=== PATIENT | male | born 1975 | race Caucasian/White ===

== ENCOUNTER 2019-06-17 09:23 | Emergency (ER) | payer OTHER ==
[~2019-06-17] VITALS: Ht 188 cm; Wt 124.7 kg
[2019-06-17 09:23] VITALS: BP_SYST 143
[2019-06-17 10:20] VITALS: BP_SYST 143
== END 2019-06-17 10:38 | disposition home or self-care (01) ==
LOC: SED 09:23
DX: K40.90 Unilateral inguinal hernia, without obstruction or gangrene, not specified as recurrent (principal); K42.9 Umbilical hernia without obstruction or gangrene
CPT/HCPCS: 99283

== ENCOUNTER 2019-06-20 11:23 | Emergency (ER) | payer OTHER ==
[~2019-06-20] VITALS: Ht 188 cm; Wt 79.4 kg
[2019-06-20 11:31] VITALS: BP_SYST 154
[2019-06-20 12:26] LABS: BASOPHILS # (AUTO) 0.1 K/uL (0.0-0.2); BASOPHILS % (AUTO) 0.7 % (0.0-2.0); EOSINOPHILS # (AUTO) 0.1 K/uL (0.0-0.4); EOSINOPHILS % (AUTO) 1.7 % (0.0-4.0); HEMATOCRIT 46.4 % (36-54); HEMOGLOBIN 15.5 g/dL (14.0-18.0); LYMPHOCYTES # (AUTO) 2.7 K/uL (1.0-5.5); MEAN CORPUSCULAR HEMOGLOBIN 29 pg (27-31); MEAN CORPUSCULAR HGB CONC 34 % (32-36); MEAN CORPUSCULAR VOLUME 86 fL (79.0-98.0); MONOCYTES # (AUTO) 0.5 K/uL (0.0-1.0); MONOCYTES % (AUTO) 5.7 % (1.7-9.3); NEUTROPHILS # (AUTO) 4.9 K/uL (1.8-7.7); NEUTROPHILS % (AUTO) 58.9 % (40.0-70.0); PLATELET COUNT (AUTO) 290 K/uL (130-430); RED BLOOD CELL COUNT(AUTO) 5.41 MIL/uL (4.2-6.2); RED CELL DISTRIBUTION WIDTH 14.5 % (9.0-15.0); WHITE BLOOD COUNT (AUTO) 8.3 K/uL (4.8-10.8)
[2019-06-20 12:34] LABS: CREATININE 0.87 mg/dL (0.55-1.30); POTASSIUM 4.4 mmol/L (3.5-5.1)
[2019-06-20 12:40] LABS: ALBUMIN 3.8 g/dL (3.4-4.8); TOTAL BILIRUBIN 0.5 mg/dL (0.0-1.0)
[2019-06-20 13:53] VITALS: BP_SYST 142
== END 2019-06-20 13:55 | disposition home or self-care (01) ==
LOC: SED 11:23
DX: S39.011A Strain of muscle, fascia and tendon of abdomen, initial encounter (principal); K80.20 Calculus of gallbladder without cholecystitis without obstruction; K59.00 Constipation, unspecified; X58.XXXA Exposure to other specified factors, initial encounter; Y93.89 Activity, other specified; Y92.89 Other specified places as the place of occurrence of the external cause; Y99.8 Other external cause status
CPT/HCPCS: 36415; 80053; 83690-TC; 85025; 99284

== ENCOUNTER 2022-06-20 10:10 | Emergency (ER) | payer OTHER ==
[~2022-06-20] VITALS: Ht 188 cm; Wt 127.0 kg
[2022-06-20 10:10] VITALS: BP_SYST 159
--- NOTE | 2022-06-20 10:10 | NUR ---
BROUGHT BACK TO BED #8 AND TRIAGED. REPORT GIVEN TO MANSOOR
--- NOTE | 2022-06-20 10:21 | NUR ---
RECEIVED PT FROM DAT GORDILLO. PT BIBS FROM HOME WITH C/O PAIN TO UPPER BACK, NECK AREA 12/30. PT STATED HE FELL A COUPLE OF DAYS AGO. PT IS AAOX4, PERRL. RESP E/U. NO R/A. NORMAL S1S2. DENIES N/V/D/C. SKIN WARM, CDI, NO EDEMA. DISTAL PULSES NORMAL. SIDERAILS UP X2.
--- NOTE | 2022-06-20 10:23 | NUR ---
DR. GARCIA AT BEDSIDE TO ASSESS PT.
[2022-06-20] MEDS ORDERED: HYDR-3917 PO (11:56)
[2022-06-20] MEDS ORDERED: IBUP-1971 PO (11:56)
[2022-06-20 12:39] VITALS: BP_SYST 159
--- NOTE | 2022-06-20 12:41 | NUR ---
Patient given written and verbal discharge instructions and verbalizes understanding. ER MD discussed with patient the results and treatment provided. Patient in stable condition. ID arm band removed. Opportunity for questions provided and answered. Medication side effect fact sheet provided.
== END 2022-06-20 12:41 | disposition home or self-care (01) ==
LOC: SED 10:10
DX: S13.4XXA Sprain of ligaments of cervical spine, initial encounter (principal); S00.03XA Contusion of scalp, initial encounter; R42 Dizziness and giddiness; R11.0 Nausea; Z79.899 Other long term (current) drug therapy; W18.2XXA Fall in (into) shower or empty bathtub, initial encounter; Y93.89 Activity, other specified; Y92.89 Other specified places as the place of occurrence of the external cause; Y99.8 Other external cause status
CPT/HCPCS: 70450-TC; 72125-TC; 76376; 99284